=== PATIENT | female | born 1980 | race Caucasian/White ===

== ENCOUNTER 2019-05-18 15:15 | Emergency (ER) | payer OTHER ==
[~2019-05-18] VITALS: Ht 175.3 cm; Wt 122.5 kg
[2019-05-18 15:24] VITALS: BP 142/89
== END 2019-05-18 19:38 | disposition left against medical advice (07) ==
LOC: ER 15:15
DX: R07.89 Other chest pain (principal)
CPT/HCPCS: 93005